=== PATIENT | female | born 1970 | race African-American/Black ===

== ENCOUNTER → 2019-03-06 | Outpatient (CLI) | payer BC, OTHER ==
--- NOTE | 2019-03-06 15:47 | KCIC ---
MR of the left fourth finger HISTORY: PIP joint pain and swelling, limited range of motion. Injury with fourth PIP joint dislocation last December. TECHNIQUE: Routine multiplanar sequences are obtained. FINDINGS: Mild soft tissue edema surrounding the fourth PIP joint. Small PIP joint effusion. Mild thickening of radial and ulnar collateral ligaments without disruption. Flexor and extensor tendons appear to be intact. No significant tendon sheath fluid. No evidence of acute fracture. No aggressive bone destruction. Alignment appears intact. IMPRESSION: 1. Mild soft tissue edema or hemorrhage around the fourth PIP joint with mild collateral ligament thickening or sprain, may be residual from previous trauma versus active inflammation. 2. No evidence of acute bone abnormality. Electronically signed by: Adis Farrell MD (03/06/2019 3:44 PM) [id number]
== END | disposition home or self-care (01) ==
LOC: KCIC MRI 12:16
PROVIDERS: ATTEND Family Medicine
DX: M25.442 Effusion, left hand (principal); M79.645 Pain in left finger(s)
CPT/HCPCS: 73218